=== PATIENT | female | born 1970 | race Caucasian/White ===

== ENCOUNTER 2018-06-10 10:27 | Emergency (ER) | payer OTHER, SELFPAY ==
[2018-06-10 10:30] VITALS: BP 162/91; PULSE 68; RESP 15; TEMP 36.7; O2SAT 100; BMI 23.3
--- NOTE | 2018-06-10 10:51 | DI.US.S_ITS ---
PROCEDURE: US ABDOMEN COMPLETE INDICATIONS: RIGHT UPPER QUADRANT PAIN TECHNIQUE: Real-time scanning was performed of the abdominal and retroperitoneal organs, with image documentation. COMPARISON: None. FINDINGS: Liver: Liver is normal in size and homogeneous in echotexture. Gallbladder: Gallbladder is distended and contains several small dependent stones. Gallbladder wall thickness is normal. No pericholecystic free fluid. Biliary ducts: Intrahepatic bile ducts appeared dilated. Extrahepatic bile duct caliber measures 11-12 mm. Normal is 6-7 mm or less in diameter, or 10 mm or less post-cholecystectomy. Pancreas: Visualized portions of the pancreas are sonographically normal. Spleen: Spleen is normal in size and homogeneous in echotexture. Kidneys: Kidneys are normal in size and echotexture. Right kidney measures 10.8 cm long; left kidney measures 10.0 cm long. No hydronephrosis or nephrolithiasis. No solid masses. Aorta: Visualized aorta is normal in caliber at less than 3 cm. Iliacs: Iliac vessels are obscured by bowel gas IVC: Intrahepatic inferior vena cava is patent. Miscellaneous: No free abdominal fluid. IMPRESSION: 1. Cholelithiasis without evidence of cholecystitis. 2. Biliary dilatation may be secondary to extrahepatic obstruction. Correlation with liver enzymes recommended. If indicated, MRCP may be helpful. 3. Liver, spleen and visualized pancreas appear normal. Iliac vessels are obscured by gas Dictated by: Jovani Muñoz M.D. on 06/10/2018 at 11:45 Approved by: Jovani Muñoz M.D. on 06/10/2018 at 11:49
[2018-06-10] MEDS: SODIUM CHLORIDE 0.9% 1,000 ML 1000 ML IV (11:26)
[2018-06-10] MEDS: ONDANSETRON 4 MG/2 ML INJ IV (11:26)
[2018-06-10] MEDS: HYDROMORPHONE 1 MG INJ IV (11:29)
[2018-06-10 12:00] VITALS: BP 129/61; PULSE 64; RESP 16; O2SAT 100
[2018-06-10 12:03] LABS: Albumin Globulin Ratio 1.4 (1.0-2.8); Alkaline Phosphatase 126 U/L (38-126); Bilirubin Total 1.8 mg/dL (0.2-1.3); Blood Urea Nitrogen 12 mg/dL (7-17); Calcium 10.4 mg/dL (8.4-10.2); Carbon Dioxide 32 mmol/L (22-32); Chloride 102 mmol/L (98-107); Estimated Glomerular Filt Rate > 60.0 mL/min (>60); Globulin 3.5 g/dL (1.7-4.1); Glucose 105 mg/dL (70-100); HEMOLYSIS 28 (0-50); Lipase 285 U/L (23-300); Potassium 4.3 mmol/L (3.4-5.1); Sodium 144 mmol/L (137-145); Total Protein 8.5 g/dL (6.3-8.2)
[2018-06-10 12:08] LABS: Add Manual Diff / Slide Review NO; Basophils Percent Auto 0.7 % (0-2); Eosinophils Percent Auto 1.8 % (2-4); Hematocrit 37.2 % (36-46); Hemoglobin 12.6 g/dL (12.0-16.0); Lymphocytes Percent Auto 30.4 % (25-40); Mean Corpuscular Hemoglobin 31.6 PG (26-34); Monocytes Percent Auto 11.5 % (3-14); Neutrophils Absolute Auto 2800 /uL (3000-5900); Neutrophils Percent Auto 55.6 % (50-75); Platelet Count 302 X10^3/uL (150-400); Red Blood Cell Count 3.99 X10^6/uL (4.0-5.2); Red Cell Distribution Width 12.6 % (11.6-14.8)
[2018-06-10 12:18] LABS: Alanine Aminotransferase 1521 IU/L (9-52); Aspartate Aminotransferase 1339 IU/L (14-36)
[2018-06-10 12:39] LABS: Pregnancy Test Serum,Qual Negative (Negative)
[2018-06-10 14:30] VITALS: BP 113/68; PULSE 50; RESP 16; O2SAT 100
[2018-06-10 15:05] LABS: Acetaminophen 14 ug/mL (10-30)
--- NOTE | 2018-06-10 15:19 | ED.ABDPAIN ---
HPI - Abdominal Pain General Chief Complaint: Abdominal Pain Stated Complaint: RIGHT SIDE ABDOMINAL PAIN Time Seen by Provider: 06/10/18 10:39 History of Present Illness HPI narrative: HPI 48-year-old female presents for evaluation of one day of right upper quadrant pain that began yesterday morning, is waxing and waning without clear provoking or relieving factors, was minimal this morning, the patient took a very small breakfast and sometime thereafter had return of significant sharp nonradiating pain. Patient denies chest pain, cough, fevers, chills, continues pass flatus and stool baseline, denies dysuria or urinary frequency. M/S/F/SocHx notable for: please see HPI; remainder reviewed with patient and in chart. ROS: Negative constitutional, eye, cardiovascular, pulmonary, GI, , MSK, skin, neurologic, psychiatric, endocrine unless noted in the HPI. Exam Gen: pleasant, nontoxic-appearing, resting in mild to moderate discomfort. HEENT: NC, AT, PEERL, EOMI. Resp: Clear to auscultation bilaterally, normal work of breathing. Card: Regular rate and rhythm with no murmurs rubs or gallops, extremities warm and well perfused. GI: ND, moderate RUQ TTP, no epigastric TTP, remainder of abdomen non-tender to palpation, positive Sweet's sign, no rebound or guarding. : No CVA tenderness to percussion bilaterally. No suprapubic tenderness to palpation. MSK: No visible deformities, strength and tone WNL. Skin: Normal color with no visible lesions. Neuro: AO x 3, no facial asymmetry, vision and hearing WNL. Psych: Mood and affect appropriate. Labs / Imaging (pertinent): WBC 5.0, Hb 12.6, Na 144, K 4.3, total bilirubin 1.8, AST 1339, ALT 1521, ALP 126, lipase 285, [place] hCG. UA - negative nitrate, negative leukocyte esterase. US RUQ: ]cholelithiasis without evidence of cholecystitis. Biliary dilatation may be secondary to extrahepatic obstruction. Correlation with liver enzymes recommended. If indicated MRCP may be helpful. Liver, spleen, and visualize pancreas appear normal. Iliac vessels are obscured by gas. Acetaminophen 14 Hepatic panel pending. MDM Previous chart, nursing note, and vitals reviewed. A: 48-year-old female presents for evaluation of one day of right upper quadrant pain that began yesterday morning, is waxing and waning without clear provoking or relieving factors, was minimal this morning, the patient took a very small breakfast and sometime thereafter had return of significant sharp nonradiating pain. DDx: hepatitis, Biliary disease (cholecystitis, cholelithiasis, choledocholithiasis, biliary colic), pancreatitis, appendicitis, ureterolithiasis, peptic ulcer disease, GERD, ACS, PE. Evaluation: laboratory studies suggestive of acute appendicitis, right upper quadrant ultrasound notable for mild biliary dilatation, elevation of liver enzymes is not strongly suggestive of an extrahepatic obstruction (normal ALP, marked ALT and AST elevations, and minimal bilirubin elevation). Further history obtained, patient is on a road trip from [place] and has some occupational exposure to high risk individuals for hepatitis A. Acetaminophen WNL, repeat history without identifiable recent excessive doses of acetaminophen. Patient discharge with return to care precautions, hepatic panel pending, prescribed limited course of [place] and Zofran. Patient to follow up with PCP. Impression: suspected hepatitis (please reference below for remainder of encounter information) Related Data Allergies Allergy/AdvReac Type Severity Reaction Status Date / Time No Known Drug Allergies Allergy Verified 06/10/18 10:30 Exam Initial Vital Signs Initial Vital Signs: Vital Signs Temperature 98.1 F 06/10/18 10:30 Pulse Rate 68 06/10/18 10:30 Respiratory Rate 15 06/10/18 10:30 Blood Pressure 162/91 H 06/10/18 10:30 Pulse Oximetry 100 06/10/18 10:30 Course Orders Ordered: ED Orders 06/10/18 10:51 US abdomen complete Stat 06/10/18 11:20 Acetaminophen Stat Complete Blood Count AUTO DIFF Stat Comprehensive Metabolic Panel Stat Hepatitis Acute Panel Stat Lipase Stat Test Serum,Qual Stat Discontinued Medications Hydromorphone HCl (Dilaudid) 1 mg IV NOW ONE Stop: 06/10/18 10:52 Last Admin: 06/10/18 11:29 Dose: Not Given Hydromorphone HCl (Dilaudid) 1 mg IV NOW ONE Stop: 06/10/18 11:31 Last Admin: 06/10/18 11:29 Dose: 1 mg Sodium Chloride (Normal Saline 0.9%) 1,000 mls @ 1,000 mls/hr IV BOLUS ONE Stop: 06/10/18 11:50 Last Infusion: 06/10/18 12:36 Dose: 0 mls/hr Admin: 06/10/18 11:26 Dose: 1,000 mls/hr Ondansetron HCl (Zofran) 4 mg IV NOW ONE Stop: 06/10/18 10:52 Last Admin: 06/10/18 11:26 Dose: 4 mg Vital Signs - 8 hr 06/10/18 10:30 06/10/18 12:00 06/10/18 14:30 Temperature 98.1 F Pulse Rate 68 64 50 L Respiratory Rate 15 16 16 Blood Pressure 162/91 H Blood Pressure [Right Arm] 129/61 H 113/68 Pulse Oximetry 100 100 100 MDM - Abdominal Pain Lab Data Result diagrams: 06/10/18 11:20 06/10/18 11:20 Lab Results 06/10/18 06/10/18 06/10/18 Range/Units 11:20 11:20 11:20 WBC 5.0 (4.5-11.0) X10^3/uL RBC 3.99 L (4.0-5.2) X10^6/uL Hgb 12.6 (12.0-16.0) g/dL Hct 37.2 (36-46) % MCV 93.0 (80-100) fL MCH 31.6 (26-34) PG MCHC 34.0 (30-36) % RDW 12.6 (11.6-14.8) % Plt Count 302 (150-400) X10^3/uL Neut % (Auto) 55.6 (50-75) % Lymph % (Auto) 30.4 (25-40) % [place] % (Auto) 11.5 (3-14) % Eos % (Auto) 1.8 L (2-4) % Baso % (Auto) 0.7 (0-2) % Neut # (Auto) 2800 L (4491-9365) /uL Sodium 144 (137-145) mmol/L Potassium 4.3 (3.4-5.1) mmol/L Chloride 102 (98-107) mmol/L Carbon Dioxide 32 (22-32) mmol/L BUN 12 (7-17) mg/dL Creatinine 0.60 (0.52-1.04) mg/dL Estimated GFR > 60.0 (>60) mL/min BUN/Creatinine Ratio 20.0 (6-22) Glucose 105 H (70-100) mg/dL Calcium 10.4 H (8.4-10.2) mg/dL Total Bilirubin 1.8 H (0.2-1.3) mg/dL AST 1339 H (14-36) IU/L ALT 1521 H (9-52) IU/L Alkaline Phosphatase 126 (38-126) U/L Total Protein 8.5 H (6.3-8.2) g/dL Albumin 5.0 (3.5-5.0) g/dL Globulin 3.5 (1.7-4.1) g/dL Albumin/Globulin Ratio 1.4 (1.0-2.8) Lipase 285 (23-300) U/L Serum , Qual Negative (Negative) Acetaminophen (10-30) ug/mL 06/10/ Range/Units 11:20 WBC (4.5-11.0) X10^3/uL RBC (4.0-5.2) X10^6/uL Hgb (12.0-16.0) g/dL Hct (36-46) % MCV (80-100) fL MCH (26-34) PG MCHC (30-36) % RDW (11.6-14.8) % Plt Count (150-400) X10^3/uL Neut % (Auto) (50-75) % Lymph % (Auto) (25-40) % [place] % (Auto) (3-14) % Eos % (Auto) (2-4) % Baso % (Auto) (0-2) % Neut # (Auto) (3614-1818) /uL Sodium (137-145) mmol/L Potassium (3.4-5.1) mmol/L Chloride (98-107) mmol/L Carbon Dioxide (22-32) mmol/L BUN (7-17) mg/dL Creatinine (0.52-1.04) mg/dL Estimated GFR (>60) mL/min BUN/Creatinine Ratio (6-22) Glucose (70-100) mg/dL Calcium (8.4-10.2) mg/dL Total Bilirubin (0.2-1.3) mg/dL AST (14-36) IU/L ALT (9-52) IU/L Alkaline Phosphatase (38-126) U/L Total Protein (6.3-8.2) g/dL Albumin (3.5-5.0) g/dL Globulin (1.7-4.1) g/dL Albumin/Globulin Ratio (1.0-2.8) Lipase (23-300) U/L Serum , Qual (Negative) Acetaminophen 14 (10-30) ug/mL Point of care testing: Urine Dip Bedside Urine Glucose Negative Bedside Urine Bilirubin - Negative Bedside Urine Ketone - Negative Urine Specific [place] 1.020 Bedside Urine Occult Blood +/- Bedside Urine pH 6.0 Bedside Urine Protein - Negative Bedside Urine Urobilinogen - Negative Bedside Urine Nitrite - Negative Bedside Urine Leukocytes - Negative Esterase
[2018-06-10 15:46] VITALS: BP 141/80; PULSE 54; RESP 14; O2SAT 100
[2018-06-14 11:24] LABS: Hepatitis A Antibody IgM NONREACTIVE; Hepatitis Acute Panel Interp 0.02; Hepatitis B Core Antibody IgM NONREACTIVE; Hepatitis B Surface Antigen NONREACTIVE; Hepatitis C Antibody NONREACTIVE
== END 2018-06-10 15:47 | disposition home or self-care (01) ==
PROVIDERS: Emergency Provider Emergency Medicine
DX: K75.9 Inflammatory liver disease, unspecified (principal)
CPT/HCPCS: 36415; 36591; 76700; 80053; 80074; 80329; 81003; 83690; 84703; 85025; 96361; 96374; 96375; 99283; 99284; G0480; J1170; J2405